=== PATIENT | female | born 1965 | race Hispanic/Latino ===

== ENCOUNTER 2018-09-16 21:33 | Emergency (ER) | payer OTHER ==
[~2018-09-16] VITALS: Ht 165.1 cm; Wt 115.7 kg
[~2018-09-16 21:33] MED LIST: BUPROBAN150 MG; LEVOCETIRIZINE D5 MG; LEVOTHYROXINE50 MCG; PRAVACHOL20 MG; SPIRONOLACTONE25 MG
--- OUTSIDE RECORDS SUMMARY | 2018-09-16 21:37 | XMS REPORT | Clinical Summary ---
Author Author [facility] Organization [facility] Address Unknown Phone Unavailable Care Team Providers Care Bulk Sealer Name Role Phone Laura Prather MD PCP Allergies Comments Active Allergy Reactions Severity Noted Date Sulfamethoxazole-Trimetho Hives 11/19/2017 prim Medications End Date Status Medication Sig Dispensed Refills Start Date Active midodrine (PROAMATINE) 5 Take 5 mg by 0 11/13/201 MG tablet mouth daily. 8 Active atorvastatin (LIPITOR) 40 Take 40 mg by 0 MG tablet mouth nightly. Active clopidogrel (PLAVIX) 75 Take 75 mg by 0 mg tablet mouth daily. Active buPROPion SR (WELLBUTRIN Take 300 mg 0 SR) 100 MG 12 hr tablet by mouth nightly. Active gabapentin (NEURONTIN) Take 300 mg 0 300 mg capsule by mouth 3 (three) times a day. Active levothyroxine (SYNTHROID, Take 50 mcg 0 LEVOXYL) 50 mcg tablet by mouth every morning. Active sertraline (ZOLOFT) 50 MG Take 50 mg by 0 tablet mouth daily. Active Problems Problem Noted Date Syncope 11/19/2017 Encounters Care Team Description Date Type Specialty Jonathan Maxwell MD Cv left heart cath w lv gram cors [91159 (CPT)] 11/23/2017 Surgery Procedural Cardiology Jonathan Maxwell MD Ep tilt table [82801 (CPT)] 11/22/2017 Surgery Procedural Cardiology Jonathan Maxwell MD Ep tilt table [72688 (CPT)] 11/20/2017 Surgery Procedural Cardiology Jackson Castaneda MD Syncope, unspecified syncope type (Primary Dx) 11/19/2017 [facility] General Internal Medicine - Encounter 11/24/2017 after 09/15/2017 Immunizations Name Dates Previously Given Next Due FLUCELVAX QUAD PF (0.5mL 11/19/2017 syringe) Pneumococcal Conjugate 11/19/2017 13-[facility]ent Social History Date Tobacco Use Types Packs/Day Years Used Current Every Day Smoker 0.25 Smokeless Tobacco: Never Used Alcohol Use Drinks/Week oz/Week Comments Yes ocassional Sex Assigned at Date Recorded Not on file Industry Job Start Date Occupation Not on file Not on file Not on file Travel End Travel History Travel Start No recent travel history available. Last Filed Vital Signs Time Taken Vital Sign Reading 11/24/2017 3:01 PM CDT Blood Pressure 142/80 11/24/2017 3:01 PM CDT Pulse 72 11/24/2017 3:01 PM CDT Temperature 36.2 C (97.2 F) 11/24/2017 3:01 PM CDT Respiratory Rate 18 11/24/2017 3:01 PM CDT Oxygen Saturation 96% - Inhaled Oxygen - Concentration 11/19/2017 7:28 PM CDT Weight 132 kg (290 lb) 11/19/2017 7:28 PM CDT Height 165.1 cm (5' 5") 11/19/2017 7:28 PM CDT Body Mass Index 48.26 Plan of Treatment Health Maintenance Due Date Last Done Comments BREAST CANCER SCREENING 09/23/2015 COLONOSCOPY SCREENING 09/23/2015 SHINGLES VACCINES (#1) 09/23/2015 INFLUENZA VACCINE 10/07/2018 11/19/2017 Implants Device Identifier Shelf Expiration Date Model / Serial / Lot Implanted Type Area Manufactur er 10/07/2019 [id number] / / [id number] Device Vasclr Clsr Baln Cath 10ml Cardiovasc N/A: N/A CARDINAL Lkng Syr 6fr 7fr Formerly [facility] [id number] Implants Implanted: 11/23/2017 (Quantity not on file) Procedures Comments Procedure Name Priority Date/Time Associated Diagnosis EEG AWAKE/ASLEEP LESS Routine 11/24/2017 THAN 41 MIN 1:[address] ANGIOGRAM NECK W WO Routine 11/24/2017 CONTRAST 1:[address] ANGIOGRAM HEAD W WO Routine 11/24/2017 CONTRAST 1:16 PM CDT CV LEFT HEART CATH LV Routine 11/23/2017 GRAM WITH CORS 8:41 AM CDT ESTIMATED GFR Routine 11/23/2017 5:51 AM CDT MAGNESIUM LEVEL Routine 11/23/2017 5:51 AM CDT BASIC METABOLIC PANEL Routine 11/23/2017 5:51 AM CDT HC COMPLETE BLD COUNT Routine 11/23/2017 W/AUTO DIFF 5:51 AM CDT TROPONIN STAT 11/22/2017 11:22 PM CDT MYOGLOBIN STAT 11/22/2017 11:22 PM CDT ECG 12-LEAD STAT 11/22/2017 10:20 PM CDT TROPONIN STAT 11/22/2017 6:52 PM CDT EP TILT TABLE Routine 11/22/2017 10:46 AM CDT ESTIMATED GFR Routine 11/22/2017 5:30 AM CDT BASIC METABOLIC PANEL Routine 11/22/2017 5:30 AM CDT HC COMPLETE BLD COUNT Routine 11/22/2017 W/AUTO DIFF 5:30 AM CDT TROPONIN STAT 11/21/2017 9:59 PM CDT ESTIMATED GFR STAT 11/21/2017 9:59 PM CDT B NATRIURETIC PEPTIDE STAT 11/21/2017 9:59 PM CDT MAGNESIUM LEVEL STAT 11/21/2017 9:59 PM CDT BASIC METABOLIC PANEL STAT 11/21/2017 9:59 PM CDT ECG 12-LEAD STAT 11/21/2017 8:22 PM CDT NM MYOCARDIAL PERFUSION Routine 11/21/2017 STRESS REST 2 DAY 12:09 PM CDT CV STRESS TEST NUCLEAR Routine 11/21/2017 CARDIO 12:09 PM CDT TROPONIN Routine 11/21/2017 6:50 AM CDT ESTIMATED GFR Routine 11/21/2017 6:50 AM CDT THYROID STIMULATING Routine 11/21/2017 HORMONE 6:50 AM CDT T3, FREE Routine 11/21/2017 6:50 AM CDT PROTHROMBIN TIME WITH INR Routine 11/21/2017 6:50 AM CDT PARTIAL THROMBOPLASTIN Routine 11/21/2017 TIME (PTT) 6:50 AM CDT MAGNESIUM LEVEL Routine 11/21/2017 6:50 AM CDT LIPID PANEL Routine 11/21/2017 6:50 AM CDT HEMOGLOBIN A1C Routine 11/21/2017 6:50 AM CDT COMPREHENSIVE METABOLIC Routine 11/21/2017 PANEL 6:50 AM CDT HC COMPLETE BLD COUNT Routine 11/21/2017 W/AUTO DIFF 6:50 AM CDT B NATRIURETIC PEPTIDE Routine 11/21/2017 6:[address] ANGIOGRAM PE CHEST STAT 11/20/2017 7:45 PM CDT EP TILT TABLE Routine 11/20/2017 5:58 PM CDT ECHOCARDIOGRAM 2D Routine 11/20/2017 COMPLETE W MMODE SPECTRAL 4:37 PM CDT COLOR DOPPLER (41576) MAGNESIUM LEVEL Routine 11/20/2017 1:25 PM CDT B NATRIURETIC PEPTIDE STAT 11/20/2017 1:25 PM CDT TROPONIN Routine 11/20/2017 1:25 PM CDT XR CHEST 1 VW PORTABLE Routine 11/20/2017 9:05 AM CDT TROPONIN Routine 11/20/2017 6:12 AM CDT CREATINE KINASE, TOTAL Routine 11/20/2017 (CPK) 6:12 AM CDT MYOGLOBIN Timed 11/20/2017 6:12 AM CDT LIPID PANEL Routine 11/20/2017 6:12 AM CDT PROTHROMBIN TIME WITH INR Routine 11/20/2017 6:12 AM CDT PARTIAL THROMBOPLASTIN Routine 11/20/2017 TIME (PTT) 6:12 AM CDT T4, FREE Routine 11/20/2017 6:12 AM CDT THYROID STIMULATING Routine 11/20/2017 HORMONE 6:12 AM CDT ECG 12-LEAD Routine 11/20/2017 4:19 AM CDT URINALYSIS SCREEN AND Routine 11/20/2017 MICROSCOPY, WITH REFLEX 3:53 AM CDT TO CULTURE URINE CULTURE Routine 11/20/2017 3:53 AM CDT GRAM STAIN Routine 11/20/2017 3:53 AM CDT MYOGLOBIN Timed 11/20/2017 1:03 AM CDT TROPONIN Timed 11/20/2017 1:03 AM CDT CREATINE KINASE, TOTAL Timed 11/20/2017 (CPK) 1:03 AM CDT ECG 12-LEAD Routine 11/20/2017 12:16 AM CDT ECG 12-LEAD Routine 11/19/2017 9:09 PM CDT MRI BRAIN WO CONTRAST Routine 11/19/2017 8:31 PM CDT MYOGLOBIN Timed 11/19/2017 7:55 PM CDT TROPONIN Timed 11/19/2017 7:55 PM CDT CREATINE KINASE, TOTAL Timed 11/19/2017 (CPK) 7:55 PM CDT US CAROTID DUPLEX Routine 11/19/2017 BILATERAL 7:[address] HEAD WO CONTRAST Routine 11/19/2017 6:21 PM CDT ESTIMATED GFR Routine 11/19/2017 3:30 PM CDT PHOSPHORUS LEVEL Routine 11/19/2017 3:30 PM CDT MAGNESIUM LEVEL Routine 11/19/2017 3:30 PM CDT COMPREHENSIVE METABOLIC Routine 11/19/2017 PANEL 3:30 PM CDT B NATRIURETIC PEPTIDE Routine 11/19/2017 3:30 PM CDT HC COMPLETE BLD COUNT Routine 11/19/2017 W/AUTO DIFF 3:30 PM CDT after 09/15/2017 Results * EEG (routine) (11/24/2017 1:45 PM CDT) Narrative Performed At ROUTINE EEG REPORT Patient Name: Rossana Silva Date of : 1965 Gender: female Date of Procedure: 11/24/2017 Indication syncope Background activity 11 c/s. Central activity 4-6 c/s. No focal or lateralizing features detected. Awake Recording: was performed, no abnormality detected Sleep Recording: was performed, no abnormality detected Hyperventilation: was not performed Photic Stimulation: was performed, no abnormality detected Impression Unremarkable electroencephalogram ICD10 Code/Diagnosis: Syncope * CTA Neck W Wo Contrast (11/24/2017 1:16 PM CDT) Specimen Narrative Performed At EXAMINATION:CT ANGIOGRAM NECK W WO CONTRAST [facility] CLINICAL HISTORY:syncope COMPARISON:None. TECHNIQUE: Neck CTA with multi-planar MIP and volumetric rendering (3D) after bolus intravenous iodinated contrast administration was performed. All CT images were acquired using low-dose technique with automated exposure control. FINDINGS: There is normal contrast enhancement of the aortic arch and its proximal branch arteries with no significant stenosis or occlusion. There is normal contrast enhancement with no significant stenosis or occlusion along bilateral common, internal, and external carotid arteries. There is no significant stenosis according to the NASCET criteria (0%). There is normal contrast enhancement with no significant stenosis or occlusion along bilateral vertebral arteries. There is a bulky large disc ossified complex at C3-C4 level with severe cervical canal stenosis with potential compromise of the cervical spinal cord. There is multinodular thyroid gland. IMPRESSION: Unremarkable neck CTA with no significant carotid or vertebral artery stenosis. Severe cervical canal stenosis at C3-C4 level due to large broad-based disc osteophyte complex. [id number] Procedure Note Interface, Radiology Results Incoming - 11/24/2017 2:12 PM CDT EXAMINATION: CT ANGIOGRAM NECK W WO CONTRAST CLINICAL HISTORY: syncope COMPARISON: None. TECHNIQUE: Neck CTA with multi-planar MIP and volumetric rendering (3D) after bolus intravenous iodinated contrast administration was performed. All CT images were acquired using low-dose technique with automated exposure control. FINDINGS: There is normal contrast enhancement of the aortic arch and its proximal branch arteries with no significant stenosis or occlusion. There is normal contrast enhancement with no significant stenosis or occlusion along bilateral common, internal, and external carotid arteries. There is no significant stenosis according to the NASCET criteria (0%). There is normal contrast enhancement with no significant stenosis or occlusion along bilateral vertebral arteries. There is a bulky large disc ossified complex at C3-C4 level with severe cervical canal stenosis with potential compromise of the cervical spinal cord. There is multinodular thyroid gland. IMPRESSION: Unremarkable neck CTA with no significant carotid or vertebral artery stenosis. Severe cervical canal stenosis at C3-C4 level due to large broad-based disc osteophyte complex. [id number] Performing Organization Address City/State/Zipcode Phone Number [facility] [address] [place] [address] * CTA Head W Wo Contrast (11/24/2017 1:16 PM CDT) Specimen Narrative Performed At EXAMINATION:CT ANGIOGRAM HEAD W WO [facility] CLINICAL HISTORY:syncope COMPARISON:None. TECHNIQUE: Head CTA with multi-planar MIP and volumetric rendering (3D) after bolus intravenous iodinated contrast administration was performed. All CT images were acquired using low-dose technique with automated exposure control. FINDINGS: There is normal contrast enhancement with no significant stenosis or occlusion along bilateral intracranial ICAs, ACAs, and MCAs. The anterior communicating artery complex is unremarkable. There is normal contrast enhancement with no significant stenosis or occlusion along bilateral vertebral arteries, basilar artery, cerebellar arteries, and stock turner. The posterior communicating arteries are not well visualized. There is no evidence of cerebral aneurysm in the proximal sh[place] of [place]. There is normal contrast enhancement of major intracranial venous structures. IMPRESSION: Unremarkable head CTA with no significant stenosis or occlusion in the proximal sh[place] of [place]. [id number] Procedure Note Interface, Radiology Results Incoming - 11/24/2017 2:06 PM CDT EXAMINATION: CT ANGIOGRAM HEAD W WO CONTRAST CLINICAL HISTORY: syncope COMPARISON: None. TECHNIQUE: Head CTA with multi-planar MIP and volumetric rendering (3D) after bolus intravenous iodinated contrast administration was performed. All CT images were acquired using low-dose technique with automated exposure control. FINDINGS: There is normal contrast enhancement with no significant stenosis or occlusion along bilateral intracranial ICAs, ACAs, and MCAs. The anterior communicating artery complex is unremarkable. There is normal contrast enhancement with no significant stenosis or occlusion along bilateral vertebral arteries, basilar artery, cerebellar arteries, and stock turner. The posterior communicating arteries are not well visualized. There is no evidence of cerebral aneurysm in the proximal sh[place] of [place]. There is normal contrast enhancement of major intracranial venous structures. IMPRESSION: Unremarkable head CTA with no significant stenosis or occlusion in the proximal sh[place]nee of [place]. [id number] Performing Organization Address City/State/Zipcode Phone Number [facility] [address] [place] [address] * Cv engineer geophysical laboratory procedure (11/23/2017 8:41 AM CDT) Specimen Narrative Performed At [facility] CATHETER[facility] REPORT Indication: Chest pain. Abnormal stress test Informed consent was obtain. Patient brought to the engineer geophysical laboratory. Moderate sedation provided. Right groin infiltrated with with Xylocaine 2%. An attempt was made to access the right common femoral artery which was unsuccessful. Ultrasound probe was taken right common femoral, superficial, profunda were identified.Ultrasound guided one single anterior wall puncture was perform to the femoral artery with a micropuncture system. A [address] A 6 Jamaican pig tail, JL4 and 3 DRC catheter were use. Findings Left ventricle: Ejection fraction 55% LVEDP 20 mmHg Systolic pressure was 150 mmHg There is no gradient across the aortic valve. Coronaries: Left main artery is patent. Left anterior descending artery patent distal LAD is small Diagonal patent Circumflex and OM branches patent Right coronary artery and its branches are patent Right femoral angiography and Mynx closure device applied for hemostasis. Physician supervised moderate sedation with IV Versed and fentanyl for 36 minutes Continuous monitoring on the pulse oximetry, blood pressure, heart rate, patient consciousness level and patient pain level was performed by independent RN Patient tolerated the procedure well Performing Organization Address City/[facility]/Zipcode Phone Number [facility] [address] [place] [address] * Estimated GFR (11/23/2017 5:51 AM CDT) Only the most recent of 5 results within the time period is included. [facility] Estimated GFR >=90 mL/min/1.73 m2 [facility] Comment: OF PATHOLOGY CatergoryUnitsInte AND GENOMIC rpretation MEDICINE G1 >=90 Normal or high G2 60-89Mildly decreased H2x44-26 Mildly to moderately decreased D0x28-74 Moderately to severely decreased G4 15-29Severely decreased G5 <15Kidney failure The eGFR was calculated using the Chronic Kidney Disease Epidemiology Collaboration (CKD-EPI) equation. Interpretation is based on recommendations of the National Kidney Foundation-Kidney Disease Outcomes Quality Initiative (NKF-KDOQI) published in 2014. Specimen Plasma specimen Performing Organization Address City/[facility] Phone Number [place] [phone] [place] [address] PATHOLOGY AND GENOMIC MEDICINE * CBC with platelet and differential (11/23/2017 5:51 AM CDT) Only the most recent of 4 results within the time period is included. [facility] WBC 7.9 4.2 - 11.0 k/uL [facility] OF PATHOLOGY AND GENOMIC MEDICINE RBC 4.47 4.04 - 5.86 m/uL [facility] OF PATHOLOGY AND GENOMIC MEDICINE HGB 13.4 11.5 - 15.3 g/dL [facility] OF PATHOLOGY AND GENOMIC MEDICINE HCT 41.6 34.0 - 45.0 % [facility] OF PATHOLOGY AND GENOMIC MEDICINE MCV 93.1 80.0 - 98.0 fL [facility] OF PATHOLOGY AND GENOMIC MEDICINE MCH 30.0 27.0 - 34.0 pg [facility] OF PATHOLOGY AND GENOMIC MEDICINE MCHC 32.2 31.5 - 36.5 g/dL [facility] OF PATHOLOGY AND GENOMIC MEDICINE RDW - SD 45.1 37.0 - 51.0 fL [facility] OF PATHOLOGY AND GENOMIC MEDICINE MPV 9.7 7.4 - 10.4 fL [facility] OF PATHOLOGY AND GENOMIC MEDICINE Platelet count 233 150 - 400 k/uL [facility] OF PATHOLOGY AND GENOMIC MEDICINE Nucleated RBC 0.00 /100 WBC [facility] OF PATHOLOGY AND GENOMIC MEDICINE Neutrophils 52.7 36.0 - 66.0 % [facility] OF PATHOLOGY AND GENOMIC MEDICINE Lymphocytes 31.3 24.0 - 44.0 % [facility] OF PATHOLOGY AND GENOMIC MEDICINE Monocytes 8.3 (H) 0.0 - 6.0 % [facility] OF PATHOLOGY AND GENOMIC MEDICINE Eosinophils 6.8 (H) 0.0 - 6.0 % [facility] PATHOLOGY AND GENOMIC MEDICINE Basophils 0.5 0.0 - 1.2 % [facility] PATHOLOGY AND GENOMIC MEDICINE Immature 0.4 0.0 - 1.0 % [facility] OF PATHOLOGY AND GENOMIC MEDICINE Specimen Blood Performing Organization Address City/[facility] [place] [address] PATHOLOGY AND [facility] * Magnesium level (11/23/2017 5:51 AM CDT) Only the most recent of 5 results within the time period is included. Pathologist [facility] Magnesium 2.10 1.60 - 2.60 mg/dL [facility] PATHOLOGY AND GENOMIC MEDICINE Specimen Plasma specimen Performing Organization Address City/[facility]/[place] [address] PATHOLOGY [facility] * Basic metabolic panel (11/23/2017 5:51 AM CDT) Only the most recent of 3 results within the time period is included. Sodium 144 135 - 150 mEq/L [facility] OF PATHOLOGY AND GENOMIC MEDICINE Potassium 3.7 3.5 - 5.0 mEq/L [facility] OF PATHOLOGY AND GENOMIC MEDICINE Chloride 106 98 - 112 mEq/L [facility] OF PATHOLOGY AND GENOMIC MEDICINE CO2 29 24 - 31 mmol/L [facility] OF PATHOLOGY AND GENOMIC MEDICINE Anion gap 9@ANIO 7 - 15 mEq/L [facility] OF PATHOLOGY AND GENOMIC MEDICINE BUN 12 7 - 18 mg/dL [facility] OF PATHOLOGY AND GENOMIC MEDICINE Creatinine 0.70 0.50 - 0.90 mg/dL [facility] OF PATHOLOGY AND GENOMIC MEDICINE Glucose 89 65 - 100 mg/dL [facility] OF PATHOLOGY AND GENOMIC MEDICINE Calcium 9.0 8.3 - 10.2 mg/dL [facility] OF PATHOLOGY AND GENOMIC MEDICINE Specimen Plasma specimen Performing Organization Address City/[facility] Phone Number [facility] OF [address] [place] [address] PATHOLOGY AND GENOMIC MEDICINE * Myoglobin (11/22/2017 11:22 PM CDT) Only the most recent of 4 results within the time period is included. Myoglobin <21 (A) 21 - 72 ng/mL [facility] DEPARTMENT OF PATHOLOGY AND GENOMIC MEDICINE Specimen Plasma specimen Performing Organization Address City/[facility] Phone Number [facility] [address] [place] [phone] PATHOLOGY AND GENOMIC MEDICINE * Troponin (11/22/2017 11:22 PM CDT) Only the most recent of 8 results within the time period is included. Troponin <0.30 0.00 - 0.30 ng/mL [facility] Comment: OF PATHOLOGY 0.11 - 1.49 AND GENOMIC ng/mlNjy MEDICINE indicate increased risk of acute coronary syndrome. >=1.5 ng/ml Consistent with acute myocardial infarction. The diagnostic value of a single normal or non-diagnostic result is questionable.Serial samples at 2-6 hour intervals are required to rule out acute myocardial injury. Specimen Plasma specimen Performing Organization Address City/[facility] Phone Number [facility] OF [address] [place] [address] PATHOLOGY AND GENOMIC MEDICINE * ECG 12 lead (11/22/2017 10:20 PM CDT) Only the most recent of 5 results within the time period is included. Ventricular 86 [facility] rate Atrial rate 86 [facility] NE interval 186 [facility] QRSD interval 94 [facility] QT interval 394 [facility] QTC interval 471 [facility] P axis 1 55 [facility] QRS axis 1 75 [facility] T wave axis 61 [facility] EKG impression Sinus rhythm with frequent [facility] premature ventricular complexes-Otherwise normal ECG-In automated comparison with ECG of 21-NOV-2017 20:22,-No significant change was found- Specimen Performing Organization Address [facility] Phone Number [facility] MUSE [address] [place] [address] * Cv electrophysiology procedure (11/22/2017 10:46 AM CDT) Specimen Narrative Performed At [facility] Tilt table test report Indication: syncope Informed consent was obtain. Patient brought to the engineer geophysical laboratory. Baseline blood pressure pulse and Relafen were opted and recorded. Patient was tilted 70 degree at baseline for 20 minutes Patient was given 0.4 mg sublingual NTG Findings Patient tolerated the baseline tilt well and no episode of syncope After 0.4 mg sublingual NTG no syncope noted. Carotid Sinus Massage Report: Right carotid sinus massage performed for 10 seconds. No bradycardia or Pauses Left carotid sinus massage performed for 10 seconds. No bradycardia or Pauses Pt stated that she had some dizziness for a second only when she raised her arm above the head and move it like she is putting the towel over the shower Krystin dom. But no bradycardia , heart block or hypotension noted during that maneuver Conclusion: Test is negative for vasovagal syncope at baseline and after NTG Test is negative for hypersensitive carotid syndrome Recommendations: Avoid dehydration, caffiene, alcohol, or prolong standing. Avoid exterem extension of neck Performing Organization Address [facility] Phone Number [facility] [address] [place] [address] * B natriuretic peptide (11/21/2017 9:59 PM CDT) Only the most recent of 4 results within the time period is included. Pathologist [facility] BNP 7 0 - 100 pg/mL [facility] OF PATHOLOGY AND GENOMIC MEDICINE Specimen Blood Performing Organization Address [facility]/Zipcode Phone Number [facility] [place] [address] [place] [address] PATHOLOGY AND GENOMIC MEDICINE * Cv stress test (11/21/2017 12:09 PM CDT) Resting HR 78 [facility] MUSE Resting BP 152 [facility] MUSE Peak MET 1.0 [facility] MUSE Achieved Protocol Name ITZ [facility] MUSE Time in 00:00:58 [facility] Exercise Phase Max Systolic BP 154 [facility] Max Diastolic 82 [facility] BP Max Heart Rate 104 [facility] Max Predicted 168 [facility] Heart Rate Target HR (220 - Age)*100% [facility] Formula Arrhy During Ex ventricular premature [facility] beats-isolated ECG Interp Normal [facility] Before EX ECG Interp none [facility] During Ex Ex Summary Normal stress test MYOVIEW TO [facility] Comment FOLLOW Chest Pain none [facility] Statement Overall HR appropriate [facility] Response to Exercise Overall BP normal resting BP - [facility] Response To appropriate response Exercise Reason for Protocol completed [facility] Termination Stress Test Normal stress test MYOVIEW TO [facility] Impression FOLLOW--Waveform interpreted in report associated with image study.No interpretation is provided as part of this Stress ECG report.-Electronically Signed By Hans PINZON, Jonathan ([id number]), makeup editor Therese Ash ([id number]) on 9... Target HR 142.80 bpm H MUSE Specimen Performing Organization Address [facility] Phone Number [facility] MUSE [address] [place] [address] * Myocardial perfusion (11/21/2017 12:09 PM CDT) Resting HR 78 BPM [facility] Resting BP 152/87 mmHg [facility] O2 sat rest 96 % [facility] Post Peak HR 104 bpm [facility] Percent HR 72.83 % [facility] Post Peak BP 154/82 mmHg [facility] O2 sat peak 96 % [facility] Target HR 142.80 bpm [facility] Specimen Narrative Performed At [facility] Equivocal left ventricular perfusion. Equivocal left ventricular perfusion. No chest pain No exercise induced ST-T changes. No arrhythmias with exercise. Normal heart rate and BP response. Myoview report Breast and Diaphragmatic attenuation artifact Can not rule out minimal small anterior defect due to attenuation artifact Normal wall motion EF 57% Performing Organization Address [facility] Phone Number [facility] [address] [place] [address] * Partial thromboplastin time, activated (11/21/2017 6:50 AM CDT) Only the most recent of 2 results within the time period is included. PTT 26.2 23.0 - 36.0 sec [facility] Comment: OF PATHOLOGY PTT therapeutic range for AND GENOMIC unfractionated heparin is MEDICINE 61.0-112.0 seconds which corresponds to Anti-Xa 0.3-0.7 U/ml. Note:Change in Panic Value The PTT Panic Value is changing from 110 sec. to 100 sec. due to new instrumentation and reagents. Correlation studies have been performed to validate this result. Specimen Blood Performing Organization Address [facility] [place] [address] PATHOLOGY AND [facility] MEDICINE * Prothrombin time with INR (11/21/2017 6:50 AM CDT) Only the most recent of 2 results within the time period is included. Prothrombin 13.3 12.0 - 15.0 sec [facility] time OF PATHOLOGY AND [facility] MEDICINE INR 1.00 0.92 - 1.12 [facility] Comment: OF PATHOLOGY For patients on anticoagulant AND GENOMIC therapy, reference ranges MEDICINE below: Indication: INR Value Treatment of Venous Thrombosis, 2.0-3.0 pulmonary emboli, or prophylaxis of a venous thrombosis, or systemic emboli. High dose, high risk patients 3.0-4.5 with mechanical valves. NOTE:INR values over 3.0 are sometimes associated with gastrointestinal hemorrhage, especially values over 4.0. Specimen Blood Performing Organization Address [facility] [place] [address] PATHOLOGY AND [facility] * T3, free (11/21/2017 6:50 AM CDT) T3, free 2.86 2.18 - 3.98 pmol/L [facility] OF PATHOLOGY AND [facility] MEDICINE Specimen Plasma specimen Performing Organization Address [facility] [place] [address] PATHOLOGY AND [facility] * Thyroid stimulating hormone (11/21/2017 6:50 AM CDT) Only the most recent of 2 results within the time period is included. TSH 1.45 0.27 - 4.20 uIU/mL [facility] OF PATHOLOGY AND [facility] MEDICINE Specimen Plasma specimen Performing Organization Address [facility] [place] [address] PATHOLOGY AND [facility] MEDICINE * Hemoglobin A1c (11/21/2017 6:50 AM CDT) Pathologist [facility] Hemoglobin A1C 5.8 4.0 - 6.0 % [facility] Comment: OF PATHOLOGY AND GENOMIC MEDICINE Less than 6% - Goal of therapy for Type II Diabetes Less than 7%-Goal of therapy for Type I Diabetes Less than 8%-Accepta ble control for Type I or Type II Diabetes Greater than 8%-Unacceptabl e control; action indicated. ([id number]) Specimen Blood Performing Organization Address City/State/[place] [address] PATHOLOGY AND [facility] * Lipid panel (11/21/2017 6:50 AM CDT) Only the most recent of 2 results within the time period is included. [facility] Cholesterol 144 0 - 199 mg/dL [facility] OF PATHOLOGY AND GENOMIC MEDICINE Triglycerides 101 0 - 149 mg/dL [facility] OF PATHOLOGY AND GENOMIC MEDICINE HDL cholesterol 44 40 - 9,999 mg/dL [facility] OF PATHOLOGY AND GENOMIC MEDICINE LDL cholesterol 93Comment: Result obtained by 0 - 99 mg/dL [facility] direct LDL measurement OF PATHOLOGY [facility] Specimen Plasma specimen Performing Organization Address City/State/Zipcode Phone Number [address] [place] [phone] PATHOLOGY AND GENOMIC [facility] * Comprehensive metabolic panel (11/21/2017 6:50 AM CDT) Only the most recent of 2 results within the time period is included. [facility] Sodium 143 135 - 150 mEq/L [facility] OF PATHOLOGY AND GENOMIC MEDICINE Potassium 3.8 3.5 - 5.0 mEq/L [facility] OF PATHOLOGY AND GENOMIC MEDICINE Chloride 108 98 - 112 mEq/L [facility] OF PATHOLOGY AND GENOMIC MEDICINE CO2 25 24 - 31 mmol/L [facility] OF PATHOLOGY AND GENOMIC MEDICINE Anion gap 10@ANIO 7 - 15 mEq/L [facility] OF PATHOLOGY AND GENOMIC MEDICINE BUN 10 7 - 18 mg/dL [facility] OF PATHOLOGY AND GENOMIC MEDICINE Creatinine 0.60 0.50 - 0.90 mg/dL [facility] OF PATHOLOGY AND GENOMIC MEDICINE Glucose 93 65 - 100 mg/dL [facility] OF PATHOLOGY AND GENOMIC MEDICINE Calcium 8.7 8.3 - 10.2 mg/dL [facility] OF PATHOLOGY AND GENOMIC MEDICINE Protein 6.5 6.3 - 8.3 g/dL [facility] OF PATHOLOGY AND GENOMIC MEDICINE Albumin 3.5 3.5 - 5.0 g/dL [facility] OF PATHOLOGY AND GENOMIC MEDICINE A/G ratio 1.2 0.7 - 3.8 [facility] OF PATHOLOGY AND GENOMIC MEDICINE Alkaline 104 0 - 104 U/L [facility] phosphatase OF PATHOLOGY AND GENOMIC MEDICINE AST 26 10 - 35 U/L [facility] OF PATHOLOGY AND GENOMIC MEDICINE ALT 30 5 - 50 U/L [facility] OF PATHOLOGY AND GENOMIC MEDICINE Total bilirubin 0.3 0.2 - 1.2 mg/dL [facility] OF PATHOLOGY AND GENOMIC MEDICINE Specimen Plasma specimen Performing Organization Address City/State/Zipcode Phone Number [place] [phone] [place] [address] PATHOLOGY AND GENOMIC MEDICINE * CT Angiogram Pe Chest (11/20/2017 7:45 PM CDT) Specimen Narrative Performed At EXAMINATION: [facility] ANGIOGRAM PE CHEST CLINICAL HISTORY: Sinus Tachycardia, D dimer TECHNIQUE: CT angiographic images of the chest were obtained during intravenous administration of iodinated contrast. Computerized reformatted images and 3-D MIP images were also obtained and archived (CT pulmonary embolus protocol). Radiation dose reduction technique was utilized. COMPARISON: None. IMPRESSION: 1. Contrast opacification of the pulmonary arteries is suboptimal. No large central pulmonary emboli are seen. Small peripheral emboli cannot be completely excluded. 2.Heart is not enlarged. 3.There is no aortic aneurysm or dissection in the chest. 4.No mediastinal or hilar masses are present. 5.There is a nonspecific 5 mm nodule in the left lower lobe. Follow-up recommended in 6 months to document stability. 6.No acute infiltrate or effusion is seen. 7.Limited scans through the upper abdomen do not demonstrate any masses. [facility]-[id number] Procedure Note Interface, Radiology Results Incoming - 11/20/2017 8:03 PM CDT EXAMINATION: CT ANGIOGRAM PE CHEST CLINICAL HISTORY: Sinus Tachycardia, D dimer TECHNIQUE: CT angiographic images of the chest were obtained during intravenous administration of iodinated contrast. Computerized reformatted images and 3-D MIP images were also obtained and archived (CT pulmonary embolus protocol). Radiation dose reduction technique was utilized. COMPARISON: None. IMPRESSION: 1. Contrast opacification of the pulmonary arteries is suboptimal. No large central pulmonary emboli are seen. Small peripheral emboli cannot be completely excluded. 2. Heart is not enlarged. 3. There is no aortic aneurysm or dissection in the chest. 4. No mediastinal or hilar masses are present. 5. There is a nonspecific 5 mm nodule in the left lower lobe. Follow-up recommended in 6 months to document stability. 6. No acute infiltrate or effusion is seen. 7. Limited scans through the upper abdomen do not demonstrate any masses. [facility]-[id number] Performing Organization Address City/State/Zipcode Phone Number [facility] [address] [place] [address] * Cv electrophysiology procedure (11/20/2017 5:58 PM CDT) Specimen Narrative Performed At Performing Organization Address City/[facility] Phone Number [facility] [address] [place] [address] * Echocardiogram complete w contrast and 3D if needed (11/20/2017 4:37 PM CDT) Velocity Ratio 0.81 m/s [facility] (V1/V2) IVS,d 0.86 cm [facility] EF 44.92 % [facility] LVPWD,d 1.43 cm [facility] AoV Mean PG 5.68 mmHg [facility] AV LVOT peak 6.43 mmHg [facility] gradient MV mean 1.94 mmHg [facility] gradient MV valve area p 4.98 cm2 [facility] 1/2 method PV Pk Grad 5.57 mmHg [facility] E/A ratio 0.91 [facility] E wave 152.21 msec [facility] decelartion time LVOT Diam,S 2.12 cm [facility] LVOT area 3.53 cm2 [facility] LVOT Vmax 1.33 m/s [facility] LVOT VTI 0.23 m [facility] RVOT Vmax 0.98 m/s [facility] AoV Peak PG 10.76 mmHg [facility] MV Peak E Kendall 0.79 m/s [facility] MV stenosis 44.14 ms [facility] pressure 1/2 time MV Peak A Kendall 0.87 m/s [facility] Ao Root 2.96 cm [facility] Diameter AoV Area, Vmax 2.74 cm2 [facility] AoV Area, VTI 2.70 cm2 [facility] AoV Vmax 1.65 m/s [facility] IVS/LVPW,2D 0.60 [facility] LV,d 4.89 cm [facility] LV,s 3.80 cm [facility] PV VMAX 1.18 m/s [facility] MV E A ratio 0.91 mmHg [facility] MR peak grad 5.01 mmHg [facility] Ao Root 2.96 cm [facility] Diameter LV SYS VOL 61.90 ml [facility] LV PINTO VOL 112.39 ml [facility] LA Vol MOD A4C 32.90 ml [facility] LV SV Teich 2D 50.49 ml [facility] LV Vol s Teich 61.90 ml [facility] PSAX LVOT CO 5.82 l/min [facility] LVOT HR for 72.23 bpm [facility] LVOT CO MV Vmax 1.12 m [facility] MV VTI Tips 0.32 m [facility] RVOT pk grad 3.84 mmHg [facility] AoV Vmn 1.13 [facility] IVS s 2D 1.44 [facility] LV FS Cube 2D 22.35 [facility] LV FS Teich 2D 22.35 [facility] AoV VTI 0.30 m [facility] LV EF,2D 53.18 % [facility] MV AE ratio 1.10 [facility] LVOT Vmn 0.86 [facility] Aov area Vmn 2.59 cm2 [facility] LVOT mean grad 3.48 mmHg [facility] MAX Pred HR 167.84 [facility] 85 of MPHR 142.66 [facility] Calc MPHR 167.84 bpm [facility] IVS pct thck 68.28 % [facility] PLAX LV SV Cube 2D 62.26 ml [facility] LV vol d cube 117.07 ml [facility] 2D LV vol s cube 54.81 ml [facility] 2D LVPW pct thck 39.29 % [facility] PLAX LVPW s PLAX 1.99 cm [facility] MV Decel slope 5.17 m/s2 [facility] Pred Exer Dur 8.75 [facility] R1 Pred METS R1 7.92 [facility] Specimen Narrative Performed At [facility] There is mild left ventricular concentric hypertrophy. Left Ventricular ejection fraction is 50 - 55%. Spectral Doppler shows impaired relaxation pattern of left ventricular diastolic filling. Left atrium size is mildly dilated. There is moderate sclerosis of the aortic valve leaflets. No pericardial effusion Performing Organization Address [facility] Phone Number [facility] [address] [place] [address] * XR Chest 1 Vw Portable (11/20/2017 9:05 AM CDT) Specimen Narrative Performed At EXAMINATION:XR CHEST 1 VW PORTABLE [facility] CLINICAL HISTORY:Apnea COMPARISON:None. FINDINGS: Heart and mediastinum: Cardiomediastinal silhouette is within normal. Lungs: Low lung volumes with vascular crowding in the bases. No focal airspace disease, pleural effusion or pneumothorax. Bones: No acute abnormality. IMPRESSION: Low lung volumes and infrahilar interstitial prominence, without definite consolidations. I personally reviewed the images and the resident's findings and agree with the final report. [facility]-[id number] Procedure Note Interface, Radiology Results Incoming - 11/20/2017 10:50 AM CDT EXAMINATION: XR CHEST 1 VW PORTABLE CLINICAL HISTORY: Apnea COMPARISON: None. FINDINGS: Heart and mediastinum: Cardiomediastinal silhouette is within normal. Lungs: Low lung volumes with vascular crowding in the bases. No focal airspace disease, pleural effusion or pneumothorax. Bones: No acute abnormality. IMPRESSION: Low lung volumes and infrahilar interstitial prominence, without definite consolidations. I personally reviewed the images and the resident's findings and agree with the final report. [facility]-[id number] Performing Organization Address [facility] Phone Number [facility] [address] [place] [address] * T4, free (11/20/2017 6:12 AM CDT) Pathologist [facility] T4, free 0.99 0.90 - 1.70 ng/dL [facility] OF PATHOLOGY AND GENOMIC MEDICINE Specimen Plasma specimen Performing Organization Address City/[facility]/Zipcode Phone Number [facility] OF [address] [place] [address]. [place] [address] PATHOLOGY AND GENOMIC MEDICINE * Creatine kinase, total (CPK) (11/20/2017 6:12 AM CDT) Only the most recent of 3 results within the time period is included. Pathologist [facility] Creatine kinase 127 26 - 192 U/L [facility] OF PATHOLOGY AND GENOMIC MEDICINE Specimen Plasma specimen Performing Organization Address City/State/Zipcode Phone Number [facility] [address] [place] [address] PATHOLOGY AND GENOMIC MEDICINE * Urinalysis screen and microscopy, with reflex to culture (11/20/2017 3:53 AM CDT) Pathologist [facility] Specimen site Clean catch [facility] OF PATHOLOGY AND GENOMIC MEDICINE Color, UA Yellow [facility] OF PATHOLOGY AND GENOMIC MEDICINE Appearance, UA Clear [facility] OF PATHOLOGY AND GENOMIC MEDICINE Specific 1.012 1.001 - 1.035 [facility] gravity, OF PATHOLOGY AND GENOMIC MEDICINE pH, UA 6.0 5.0 - 8.5 [facility] OF PATHOLOGY AND GENOMIC MEDICINE Protein, UA Negative Negative [facility] OF PATHOLOGY AND GENOMIC MEDICINE Glucose, UA Negative Negative [facility] OF PATHOLOGY AND GENOMIC MEDICINE Ketones, UA Negative Negative [facility] OF PATHOLOGY AND GENOMIC MEDICINE Bilirubin, UA Negative Negative [facility] OF PATHOLOGY AND GENOMIC MEDICINE Blood, UA Negative Negative [facility] OF PATHOLOGY AND GENOMIC MEDICINE Nitrite, UA Positive (A) Negative [facility] OF PATHOLOGY AND GENOMIC MEDICINE Urobilinogen, Negative <2.0 [facility] UA OF PATHOLOGY AND GENOMIC MEDICINE Leukocyte Negative Negative [facility] esterase, UA OF PATHOLOGY AND GENOMIC MEDICINE Epithelial Few /HPF [facility] cells, UA OF PATHOLOGY AND GENOMIC MEDICINE WBC, UA 6 (H) 0 - 5 /HPF [facility] OF PATHOLOGY AND GENOMIC MEDICINE RBC, UA 2 0 - 5 /HPF [facility] OF PATHOLOGY AND GENOMIC MEDICINE Bacteria, UA Trace None seen [facility] OF PATHOLOGY AND GENOMIC MEDICINE Yeast, UA None seen [facility] OF PATHOLOGY AND GENOMIC MEDICINE Yeast with None seen [facility] pseudohyphae, OF PATHOLOGY UA AND GENOMIC MEDICINE Specimen Urine Performing Organization Address City/State/Zipcode Phone Number [facility] [address] [place] [address] PATHOLOGY AND GENOMIC MEDICINE * Gram stain (11/20/2017 3:53 AM CDT) Pathologist [facility] Gram stain No WBC's or organisms seen. [facility] DEPARTMENT result Comment: OF PATHOLOGY Specimen Information AND GENOMIC Specimen Source: Urine MEDICINE Specimen Site: Clean catch Specimen Urine Performing Organization Address City/State/Zipcode Phone Number [facility] [address] [place] [address] PATHOLOGY AND GENOMIC MEDICINE * Urine culture (11/20/2017 3:53 AM CDT) Urine culture Escherichia coli [facility] DE[facility] isolate >10-5 cfu/ml OF PATHOLOGY The performance AND GENOMIC characteristics of this assay MEDICINE on this isolate were validated by the Microbiology Laboratory at [facility].This source has not been approved by the U.S. Food and Drug Administration.The results are not intended to be used as the sole means for clinical diagnosis or patient management.The Microbiology Laboratory is authorized under the clinical Laboratory Improvement Amendments of 1988 (CLIA-88) to perform high complexity testing. (A) Comment: Specimen Information Specimen Source: Urine Specimen Site: Clean catch Urine culture Mixed Gram positive martin [facility] DEPARTMENT isolate 10-5 cfu/ml OF PATHOLOGY (A) AND GENOMIC MEDICINE Specimen Urine Antibiotic Method Susceptibility Organism Ampicillin CHON >16 mcg/mL: Resistant Escherichia coli Amoxicillin/Clavulanate CHON 8/4 mcg/mL: Susceptible Escherichia coli Amikacin CHON <=4 mcg/mL: Susceptible Escherichia coli Aztreonam CHON <=1 mcg/mL: Susceptible Escherichia coli Ceftazidime CHON <=0.5 mcg/mL: Susceptible Escherichia coli Ciprofloxacin CHON >2 mcg/mL: Resistant Escherichia coli Ceftriaxone CHON <=0.5 mcg/mL: Susceptible Escherichia coli Cefuroxime Sodium CHON <=4 mcg/mL: Susceptible Escherichia coli Cefazolin CHON 2 mcg/mL: Susceptible Escherichia coli Cefepime CHON <=0.5 mcg/mL: Susceptible Escherichia coli Nitrofurantoin CHON <=16 mcg/mL: Susceptible Escherichia coli Cefoxitin CHON <=4 mcg/mL: Susceptible Escherichia coli Gentamicin CHON <=1 mcg/mL: Susceptible Escherichia coli Imipenem CHON <=0.25 mcg/mL: Susceptible Escherichia coli Levofloxacin CHON >4 mcg/mL: Resistant Escherichia coli Meropenem CHON <=0.125 mcg/mL: Susceptible Escherichia coli Tobramycin CHON 1 mcg/mL: Susceptible Escherichia coli Ampicillin/Sulbactam CHON 16/8 mcg/mL: Resistant Escherichia coli Trimethoprim/Sulfamethoxazole CHON >2/38 mcg/mL: Resistant Escherichia coli Tetracycline CHON >8 mcg/mL: Resistant Escherichia coli Piperacillin/Tazobactam CHON <=2/4 mcg/mL: Susceptible Escherichia coli Ertapenem CHON <=0.125 mcg/mL: Susceptible Escherichia coli Tigecycline CHON <=0.5 mcg/mL: Susceptible Escherichia coli Performing Organization Address [facility] Phone Number [facility] DEPARTMENT OF [address] [place] [address] PATHOLOGY AND GENOMIC MEDICINE * MRI Brain Wo Contrast (11/19/2017 8:31 PM CDT) Specimen Narrative Performed At [facility] EXAMINATION: MRI BRAIN WO CONTRAST CLINICAL HISTORY: Syncopesimplenormal neuro exam COMPARISON:CT head same date. TECHNIQUE: Multiplanar and multisequence MRI imaging of the brain was obtained without contrast. FINDINGS: No evidence of acute intracranial hemorrhage, mass, mass effect, acute infarct or midline shift. Few scattered subcortical and minimal periventricular white matter T2 FLAIR hyperintensities which may reflect minimal chronic microvascular ischemic changes. Ventricles and sulci are normal in appearance for age. Nonspecific mildly expanded partially empty sella. No abnormal susceptibility. Basal cisterns are clear. Major intracranial flow voids are maintained. Orbits are normal in appearance. Mild mucosal thickening of multiple right ethmoid air cells. Trace fluid in a few mastoid air cells, bilaterally. IMPRESSION: 1. No acute intracranial abnormality. [id number] Procedure Note [facility], Radiology Results Incoming - 11/19/2017 9:42 PM CDT EXAMINATION: MRI BRAIN WO CONTRAST CLINICAL HISTORY: Syncope simple normal neuro exam COMPARISON: CT head same date. TECHNIQUE: Multiplanar and multisequence MRI imaging of the brain was obtained without contrast. FINDINGS: No evidence of acute intracranial hemorrhage, mass, mass effect, acute infarct or midline shift. Few scattered subcortical and minimal periventricular white matter T2 FLAIR hyperintensities which may reflect minimal chronic microvascular ischemic changes. Ventricles and sulci are normal in appearance for age. Nonspecific mildly expanded partially empty sella. No abnormal susceptibility. Basal cisterns are clear. Major intracranial flow voids are maintained. Orbits are normal in appearance. Mild mucosal thickening of multiple right ethmoid air cells. Trace fluid in a few mastoid air cells, bilaterally. IMPRESSION: 1. No acute intracranial abnormality. [id number] Performing Organization Address [facility]/Zipcode Phone Number [facility] [address] [place] [address] * Pv carotid duplex (11/19/2017 7:40 PM CDT) Specimen Narrative Performed At Examination: US CAROTID DUPLEX BILATERAL [facility] CLINICAL HISTORY: syncope TECHNIQUE: Examination includes full duplex Doppler scan (real-time B mode grayscale, Doppler spectral analysis, Doppler color flow imaging) of the common carotid, internal carotid, external carotid, and vertebral arteries. Velocity parameters are based upon studies using distal internal carotid artery diameter as a denominator for stenosis calculation. COMPARISON: None. IMPRESSION: 1.There is no significant plaque seen within the carotid arteries bilaterally. There is no hemodynamically significant stenosis within either internal carotid artery, with the peak systolic velocities within the right and left internal carotid arteries measuring 54 cm/s and 49 cm/s, respectively. The peak systolic velocities within the right and left common carotid arteries measure 91 cm/s and 109 cm/s, respectively. 2.The right and left vertebral arteries are patent and demonstrate normal antegrade flow. [facility]-[id number] Procedure Note Interface, Radiology Results Incoming - 11/19/2017 8:08 PM CDT Examination: US CAROTID DUPLEX BILATERAL CLINICAL HISTORY: syncope TECHNIQUE: Examination includes full duplex Doppler scan (real-time B mode grayscale, Doppler spectral analysis, Doppler color flow imaging) of the common carotid, internal carotid, external carotid, and vertebral arteries. Velocity parameters are based upon studies using distal internal carotid artery diameter as a denominator for stenosis calculation. COMPARISON: None. IMPRESSION: 1. There is no significant plaque seen within the carotid arteries bilaterally. There is no hemodynamically significant stenosis within either internal carotid artery, with the peak systolic velocities within the right and left internal carotid arteries measuring 54 cm/s and 49 cm/s, respectively. The peak systolic velocities within the right and left common carotid arteries measure 91 cm/s and 109 cm/s, respectively. 2. The right and left vertebral arteries are patent and demonstrate normal antegrade flow. [id number]-[id number] Performing Organization Address City/State/Zipcode Phone Number [facility] [address] [place] [address] * CT Head Wo Contrast (11/19/2017 6:21 PM CDT) Specimen Narrative Performed At EXAMINATION:CT HEAD WO CONTRAST [facility] CLINICAL HISTORY:syncope COMPARISON:None. TECHNIQUE: CT imaging was performed with iterative reconstruction technique and/or automated exposure control to reduce radiation dose. Findings: No intracranial hemorrhage, acute transcortical ischemia, extra-axial fluid collections or parenchymal mass lesions. No skull fractures or aggressive bony lesions. Visualized paranasal sinuses are clear. Mastoid air cells are clear. IMPRESSION: No acute intracranial abnormalities. [id number] Procedure Note Hm Interface, Radiology Results Incoming - 11/19/2017 6:30 PM CDT EXAMINATION: CT HEAD WO CONTRAST CLINICAL HISTORY: syncope COMPARISON: None. TECHNIQUE: CT imaging was performed with iterative reconstruction technique and/or automated exposure control to reduce radiation dose. Findings: No intracranial hemorrhage, acute transcortical ischemia, extra-axial fluid collections or parenchymal mass lesions. No skull fractures or aggressive bony lesions. Visualized paranasal sinuses are clear. Mastoid air cells are clear. IMPRESSION: No acute intracranial abnormalities. [id number] Performing Organization Address City/State/Zipcode Phone Number [facility] [address] [place] [address] * Phosphorus level (11/19/2017 3:30 PM CDT) Phosphorus 2.5 2.4 - 4.5 mg/dL [facility] [place] Specimen Plasma specimen Performing Organization Address City/State/Zipcode Phone Number [facility] [place] [facility] [place] [address] PATHOLOGY AND GENOMIC MEDICINE after 09/15/2017 Insurance Type Payer Benefit Subscriber ID Effective Phone Address Plan / Dates Group HMO/PPO [facility] xxxxxxxxx [id number] [employer] resent CHOICE/CHO ICE + Advance Directives Patient has advance care planning documents on file. For more information, ayo vega contact: Edilberto Chisholm [address] [place] [address]
[2018-09-16] MEDS ORDERED: ASPIRIN 325 MG TAB PO ONE (22:00)
[2018-09-16] MEDS ORDERED: ASPIRIN 81 MG CHEW TAB ONE (22:14)
[2018-09-16] MEDS ORDERED: NITROGLYCERIN 0.4 MG SUBL ONE (22:14)
[2018-09-16] MEDS ORDERED: NITROGLYCERIN 0.4 MG SUBL SL PRN ×2 (22:15→23:15)
[2018-09-16] MEDS ORDERED: NITROGLYCERIN 0.4 MG SUBL SL ONE (22:15)
[2018-09-16] MEDS ORDERED: SIMETHICONE 80 MG CHEW PO PRN (23:00)
[2018-09-16] MEDS ORDERED: MAGNESIUM/ALUMINUM/SIMETHICONE 30 ML UDC PO ONE (23:00)
[2018-09-16] MEDS ORDERED: MORPHINE SULFATE 2 MG/ML SYR 1ML IV PRN (23:15)
[2018-09-16] MEDS ORDERED: ASPIRIN 81 MG CHEW TAB PO ONE (23:15)
[2018-09-16] MEDS ORDERED: METOPROLOL TARTRATE 25 MG TAB PO SCH (23:15)
[2018-09-16] MEDS ORDERED: PROMETHAZINE HCL (IM) 25 MG/ML VIAL IV PRN (23:15)
[2018-09-16] MEDS ORDERED: ONDANSETRON HCL INJ 2MG/ML 2ML 2 MG/ML VIAL IV PRN (23:15)
[2018-09-16] MEDS ORDERED: ENOXAPARIN SODIUM INJ 100 MG/ML SYR SC SCH (23:15)
[2018-09-16] MEDS ORDERED: FAMOTIDINE 20 MG/2 ML VIAL IV SCH (23:15)
[2018-09-16] MEDS ORDERED: SODIUM CHLORIDE FLUSH 10 ML SYR INJ PRN (23:15)
[2018-09-16] MEDS ORDERED: SODIUM CHLORIDE 0.9% 50ML 50 ML ONE (23:21)
[2018-09-16] MEDS ORDERED: IOPAMIDOL 370 MG/ML 200 ML INFUS..BTL INJ ONE (23:21)
--- NOTE | 2018-09-16 23:27 | NUR ---
PT STATES SHE DOES NOT WANT TO BE ADMITTED - STATES SHE WILL LEAVE AMA, WANTS TO GO TO WORK IN THE MORNING AND "I JUST DONT HAVE TIME FOR THIS"; PT AWARE OF RISKS OF LEAVING, BENEFITS OF STAYING; PT VERBALIZES UNDERSTANDING; ER AWARE;
--- NOTE | 2018-09-17 | NUR ---
PT WILLING TO WAIT FOR CT SCAN TO "MAKE SURE I DONT HAVE A BLOOD CLOT"
--- NOTE | 2018-09-17 00:31 | Diagnostic Imaging Report ---
EXAM: CT Chest WITH contrast INDICATION: Chest pressure COMPARISON: None TECHNIQUE: Chest was scanned utilizing a multidetector helical scanner from the lung apex through the level of the diaphragm after administration of IV contrast and venous phase. Coronal and sagittal reformations were obtained. IV CONTRAST: 100 mL of Isovue 370 COMPLICATIONS: None RADIATION DOSE: Total DLP: 639 mGy*cm Estimated effective dose: (DLP x 0.014 x size factor) mSv CTDIvol has been reviewed. It is below the limits set by the Radiation Protocol Committee (RPC). Dose modulation, iterative reconstruction, and/or weight based adjustment of the mA/kV was utilized to reduce the radiation dose to as low as reasonably achievable. FINDINGS: LINES/ TUBES: None. LUNGS AND AIRWAYS: No filling defect is identified within the pulmonary arteries to the segmental level. Subsegmental dependent atelectasis in the posterior aspect of the left upper lobe. Scattered pulmonary nodules measure less than 6 mm, primarily in the lower lobes. Airways are normal. PLEURA: The pleural spaces are clear. HEART AND MEDIASTINUM: A 2.4 cm heterogeneous left thyroid nodule.. No mediastinal, hilar or axillary lymphadenopathy. The heart is normal in size. There is no pericardial effusion. The great vessels are unremarkable. UPPER ABDOMEN: Unremarkable BONES: There are degenerative changes in the thoracic spine. SOFT TISSUES: Unremarkable. IMPRESSION: 1. No pulmonary emboli. 2. A few scattered pulmonary nodules measure less than 6 mm, predominantly in the lower lobes, likely benign and related to inflammation. If there is high risk pulmonary clinical history, a follow-up chest CT in 12 months is recommended. 3. A 2.4 cm heterogeneous left thyroid nodule, recommend nonemergent thyroid ultrasound for further evaluation. Signed by: Abdirizak Wolf DO on 09/17/2018 12:28 AM
[2018-09-17] MEDS ORDERED: CLOPIDOGREL BISULFATE 75 MG TAB PO SCH (09:00)
[2018-09-17] MEDS ORDERED: ASPIRIN 81 MG ENTERIC COATED PO SCH (09:00)
[2018-09-17] MEDS ORDERED: NICOTINE 7 MG PATCH TOP SCH (09:00)
[2018-09-17] MEDS ORDERED: LISINOPRIL 10 MG TAB PO SCH (09:00)
[2018-09-17] MEDS ORDERED: SIMVASTATIN 40 MG TAB PO SCH (21:00)
== END 2018-09-17 00:50 | disposition left against medical advice (07) ==
LOC: FSED 21:33
DX: R07.89 Other chest pain (principal); R06.00 Dyspnea, unspecified; R11.0 Nausea; I25.110 Atherosclerotic heart disease of native coronary artery with unstable angina pectoris; I10 Essential (primary) hypertension; E78.5 Hyperlipidemia, unspecified; E03.9 Hypothyroidism, unspecified; F17.210 Nicotine dependence, cigarettes, uncomplicated
CPT/HCPCS: 71260; 80048; 81003; 81025; 85025; 93005; 99284; Q9967

== ENCOUNTER → 2020-05-30 | Outpatient (CLI) | payer OTHER ==
[~2020-05-30] MED LIST changes: +COVID-19 VACC, MRNA(MODERNA)/PF 100 MCG/0.5 ML VIAL IM ONE
== END ==
LOC: VACCPMC 09:42
DX: Z23 Encounter for immunization (principal); Z20.822 Contact with and (suspected) exposure to COVID-19
CPT/HCPCS: 0011A; 91301

== ENCOUNTER → 2020-06-26 | Outpatient (CLI) | payer OTHER | END | disposition home or self-care (01) | LOC: VACCPMC 09:00 | DX: Z23 Encounter for immunization (principal); Z20.822 Contact with and (suspected) exposure to COVID-19 | CPT/HCPCS: 91301 ==

== ENCOUNTER 2024-10-31 10:01 | Inpatient (IN) | payer OTHER ==
[2024-10-28 10:37] LABS: BASOPHILS % 0.6 % (0.0-1.0); EOSINOPHILS % 8.3 % (0.0-6.0); LYMPHOCYTES % 34.5 % (18.0-39.1); MONOCYTES % 8.3 % (4.4-11.3); NEUTROPHILS % 48.0 % (38.7-80.0); RED CELL DISTRIBUTION WIDTH 14.7 % (11.7-14.4)
[2024-10-28 11:03] LABS: EST GLOMERULAR FILTRATION RATE 101.0 ML/MIN (>=60)
[2024-10-31] VITALS (20 sets, daily range): BP systolic 92–150; BP diastolic 55–101; PULSE 64–77; RESP 14–28; TEMP 97.2–98; O2SAT 92–100
[~2024-10-31] VITALS: Ht 165.1 cm; Wt 139.4 kg
[~2024-10-31 10:01] MED LIST changes: -BUPROBAN150 MG; +BUPROBAN150 MG PO; -COVID-19 VACC, MRNA(MODERNA)/PF 100 MCG/0.5 ML VIAL IM ONE; +HYDROCHLOROTHIA25 MG PO; +IBUPROFEN800 MG PO; -LEVOTHYROXINE50 MCG; +LEVOTHYROXINE50 MCG PO; +METFORMIN HCL500 MG PO; +OZEMPIC1 MG/0.71 PO; -PRAVACHOL20 MG; +PRAVACHOL20 MG PO
[2024-10-31] MEDS ORDERED: FENTANYL CITRATE/PF 100MCG/2 ML INJ ONE ×2 (12:17→13:39)
[2024-10-31] MEDS ORDERED: PROPOFOL IV EMULSION 10 MG/ML 20 ML VIAL ONE (12:18)
[2024-10-31] MEDS ORDERED: LIDOCAINE HCL 2% LOCAL INJ 5 ML SDV VIAL INJ ONE (12:18)
[2024-10-31] MEDS ORDERED: MIDAZOLAM HCL 2 MG/2 ML VIAL ONE (12:18)
[2024-10-31] MEDS ORDERED: ROCURONIUM BROMIDE 1 ML IV ONE ×2 (12:18→14:33)
[2024-10-31] MEDS ORDERED: FAMOTIDINE 20 MG/2 ML VIAL IV ONE (12:24)
[2024-10-31] MEDS: CEFAZOLIN SODIUM 2 GM ONE (12:43)
[2024-10-31] MEDS: SODIUM CHLORIDE 0.9% 1000ML 1,000 ML ONE ×2 (12:43→20:04)
[2024-10-31] MEDS: LACTATED RINGER'S 0 ML ONE (12:44)
[2024-10-31] MEDS ORDERED: PHENYLEPHRINE HCL 1% 10 MG/ML VIAL ONE (14:37)
[2024-10-31] MEDS ORDERED: ACETAMINOPHEN 1000 MG/100 ML 100 ML IV ONE (14:40)
[2024-10-31] MEDS ORDERED: SUGAMMADEX SODIUM 200 MG/2 ML VIAL IV ONE (15:45)
[2024-10-31] MEDS ORDERED: ONDANSETRON HCL INJ 2MG/ML 2ML 2 MG/ML VIAL ONE (16:12)
[2024-10-31] MEDS: SODIUM CHLORIDE 0.9% 250ML IRRIG IR SCH (17:00)
[2024-10-31] MEDS: SODIUM CHLORIDE 0.9% 1000ML 1,000 ML IV SCH (17:00)
[2024-10-31] MEDS ORDERED: NALOXONE HCL INJ 0.4 MG/ML AMP IV PRN (17:00)
[2024-10-31] MEDS ORDERED: METOCLOPRAMIDE HCL 10 MG/2ML VIAL IV PRN (17:00)
[2024-10-31] MEDS: FENTANYL CITRATE/PF 100MCG/2 ML INJ ONE (17:07)
[2024-10-31 17:12] LABS: BASOPHILS % 0.3 % (0.0-1.0); EOSINOPHILS % 1.5 % (0.0-6.0); LYMPHOCYTES % 17.6 % (18.0-39.1); MONOCYTES % 5.4 % (4.4-11.3); NEUTROPHILS % 74.9 % (38.7-80.0); RED CELL DISTRIBUTION WIDTH 14.7 % (11.7-14.4)
[2024-10-31] MEDS: MORPHINE SULFATE 1 MG/ML 30ML PCA ONE (17:25)
[2024-10-31 17:31] LABS: EST GLOMERULAR FILTRATION RATE 77.0 ML/MIN (>=60)
[2024-10-31] MEDS: ONDANSETRON HCL INJ 2MG/ML 2ML 2 MG/ML VIAL ONE (17:33)
[2024-10-31] MEDS ORDERED: MELATONIN3 MG PO (19:44)
[2024-10-31] MEDS: ACETAMINOPHEN 1000 MG/100 ML IV PRN (20:12)
[2024-10-31] MEDS: DIPHENHYDRAMINE HCL INJ 50 MG/ML VIAL IM PRN (21:08)
[2024-10-31] MEDS ORDERED: HYDRALAZINE HCL 20 MG/ML VIAL IV PRN (23:00)
[2024-10-31] MEDS ORDERED: DEXTROSE 50% SYRINGE 50 ML IV PRN (23:00)
[2024-11-01] VITALS (47 sets, daily range): BP systolic 101–164; BP diastolic 67–106; PULSE 70–86; RESP 14–21; TEMP 97.9–98.9; O2SAT 93–98
[2024-11-01 05:20] LABS: BASOPHILS % 0.2 % (0.0-1.0); EOSINOPHILS % 0.6 % (0.0-6.0); LYMPHOCYTES % 15.9 % (18.0-39.1); MONOCYTES % 9.8 % (4.4-11.3); NEUTROPHILS % 73.2 % (38.7-80.0); RED CELL DISTRIBUTION WIDTH 14.6 % (11.7-14.4)
[2024-11-01 05:46] LABS: EST GLOMERULAR FILTRATION RATE 59.0 ML/MIN (>=60)
[2024-11-01] MEDS: INSULIN LISPRO 100 UNIT/1 ML 3ML VIAL SQ SCH (07:30)
[2024-11-01] MEDS: MORPHINE SULFATE 1 MG/ML 30ML PCA IV PRN (08:57)
[2024-11-01] MEDS: DEXTROSE 5%/0.9% SOD CHL 1,000 ML IV ONE (22:51)
[2024-11-02] VITALS (13 sets, daily range): BP systolic 98–141; BP diastolic 55–81; PULSE 82–96; RESP 18–21; TEMP 97.6–98.9; O2SAT 92–98
[2024-11-02 05:37] LABS: BASOPHILS % 0.2 % (0.0-1.0); EOSINOPHILS % 1.6 % (0.0-6.0); LYMPHOCYTES % 11.9 % (18.0-39.1); MONOCYTES % 8.6 % (4.4-11.3); NEUTROPHILS % 77.1 % (38.7-80.0); RED CELL DISTRIBUTION WIDTH 14.7 % (11.7-14.4)
[2024-11-02 06:07] LABS: EST GLOMERULAR FILTRATION RATE 65.0 ML/MIN (>=60)
[2024-11-02] MEDS: DEXTROSE 5%/0.9% SOD CHL 1,000 ML IV SCH (13:05)
[2024-11-02] MEDS: NICOTINE 21 MG/EA PATCH TOP SCH (13:05)
[2024-11-03] VITALS (8 sets, daily range): BP systolic 118–127; BP diastolic 55–91; PULSE 82–90; RESP 14–20; TEMP 97.5–99.3; O2SAT 93–97
[2024-11-03 05:32] LABS: BASOPHILS % 0.2 % (0.0-1.0); EOSINOPHILS % 2.4 % (0.0-6.0); LYMPHOCYTES % 22.0 % (18.0-39.1); MONOCYTES % 10.9 % (4.4-11.3); NEUTROPHILS % 64.1 % (38.7-80.0); RED CELL DISTRIBUTION WIDTH 14.6 % (11.7-14.4)
[2024-11-03 05:50] LABS: EST GLOMERULAR FILTRATION RATE 73.0 ML/MIN (>=60)
[2024-11-03] MEDS: SENNA-S TABLET PO SCH (09:56)
[2024-11-03] MEDS ORDERED: NICOTINE 21 MG/EA PATCH TOP SCH (12:00)
[2024-11-03] MEDS: ACETAMINOPHEN/CODEINE 300MG - 30MG TAB PO PRN (13:54)
[2024-11-03] MEDS: Morphine 4mg INJECTION 4 MG/ML INJ IV PRN (20:45)
[2024-11-03] MEDS: ONDANSETRON HCL INJ 2MG/ML 2ML 2 MG/ML VIAL IV PRN (20:46)
[2024-11-04] VITALS (11 sets, daily range): BP systolic 117–144; BP diastolic 55–82; PULSE 67–89; RESP 18–22; TEMP 98.1–98.5; O2SAT 94–100
[2024-11-04] MEDS: HYDROCODONE/APAP 7.5MG-325MG 1 EA TAB PO PRN (05:29)
[2024-11-04 05:31] LABS: BASOPHILS % 0.5 % (0.0-1.0); EOSINOPHILS % 3.3 % (0.0-6.0); LYMPHOCYTES % 17.7 % (18.0-39.1); MONOCYTES % 10.1 % (4.4-11.3); NEUTROPHILS % 67.9 % (38.7-80.0); RED CELL DISTRIBUTION WIDTH 14.5 % (11.7-14.4)
[2024-11-04 05:50] LABS: EST GLOMERULAR FILTRATION RATE 86.0 ML/MIN (>=60)
[2024-11-04] MEDS: PANTOPRAZOLE SOD 40 MG TABEC PO SCH (09:00)
[2024-11-05] VITALS (8 sets, daily range): BP systolic 100–136; BP diastolic 52–91; PULSE 74–90; RESP 17–21; TEMP 97.3–98.6; O2SAT 95–97
[2024-11-05] MEDS: BISACODYL 10 MG SUPP PR ONE (09:46)
== END 2024-11-05 18:26 | disposition home or self-care (01) | DRG 657 ==
LOC: OR 10:01 → PACU V 15:14 → ICU 18:23 → MED/SURG 11-01 15:01
PROVIDERS: ADMIT Urology; ATTEND Urology
PROC: BT141ZZ Fluoroscopy of Kidneys, Ureters and Bladder using Low Osmolar Contrast (ICD-10-PCS; 2024-10-31)
PROC: 0UJH7ZZ Inspection of Vagina and Cul-de-sac, Via Natural or Artificial Opening (ICD-10-PCS; 2024-10-31)
PROC: 0TT10ZZ Resection of Left Kidney, Open Approach (ICD-10-PCS; principal; 2024-10-31 13:07)
PROC: 0TP90DZ Removal of Intraluminal Device from Ureter, Open Approach (ICD-10-PCS; 2024-10-31 13:07)
DX: C64.2 Malignant neoplasm of left kidney, except renal pelvis (principal); Z68.43 Body mass index [BMI] 50.0-59.9, adult; N81.10 Cystocele, unspecified; N81.6 Rectocele; N36.41 Hypermobility of urethra; N95.2 Postmenopausal atrophic vaginitis; E66.01 Morbid (severe) obesity due to excess calories; I10 Essential (primary) hypertension; E78.5 Hyperlipidemia, unspecified; E03.9 Hypothyroidism, unspecified; E11.9 Type 2 diabetes mellitus without complications; Z79.85 Long-term (current) use of injectable non-insulin antidiabetic drugs; Z79.84 Long term (current) use of oral hypoglycemic drugs; I67.1 Cerebral aneurysm, nonruptured; F41.8 Other specified anxiety disorders; Z71.3 Dietary counseling and surveillance; G47.33 Obstructive sleep apnea (adult) (pediatric); M19.91 Primary osteoarthritis, unspecified site; Z87.440 Personal history of urinary (tract) infections; Z85.850 Personal history of malignant neoplasm of thyroid; Z86.73 Personal history of transient ischemic attack (TIA), and cerebral infarction without residual deficits; Z79.899 Other long term (current) drug therapy
CPT/HCPCS: 36415; 71045; 71046; 76000; 80048; 80053; 82948; 83735; 85025; 86850; 86900; 86920; 87086; 88304; 88305; 88307; 93005; 94799; 99252; C1758; J0690; J1200; J1308; J2003; J2250; J2270; J2371; J2405; J2470; J2765; J7030; J7042